=== PATIENT | male | born 2000 | race African-American/Black ===

== ENCOUNTER 2023-08-30 15:33 | Emergency (ER) | payer MEDICAID, OTHER ==
[~2023-08-30] VITALS: Ht 172.7 cm; Wt 99.0 kg
[2023-08-30 15:36] VITALS: O2SAT 98
[2023-08-30] MEDS ORDERED: TETANUS, DIPHTHERIA, PERTUSSIS VAC/PF 0.5ML (>10YR OLD) IM ONE (16:00)
[2023-08-30] MEDS ORDERED: ACETAMINOPHEN 325MG TABLET PO ONE (16:00)
[2023-08-30] MEDS ORDERED: METH-653 MT (17:48)
[2023-08-30 19:35] VITALS: BP 141/75; PULSE 74; RESP 17; TEMP 98
== END 2023-08-30 19:41 | disposition home or self-care (01) ==
LOC: ER 15:33
DX: S09.90XA Unspecified injury of head, initial encounter (principal); M54.2 Cervicalgia; M54.50 Low back pain, unspecified; M25.561 Pain in right knee; V49.59XA Passenger injured in collision with other motor vehicles in traffic accident, initial encounter; Y93.89 Activity, other specified; Y92.89 Other specified places as the place of occurrence of the external cause; Y99.8 Other external cause status
CPT/HCPCS: 72131; 73562; 90471; 90715; 99285